=== PATIENT | male | born 1980 | race Two or more races ===

== ENCOUNTER 2024-09-12 11:03 | Inpatient (IN) | payer MEDICAID, OTHER ==
[~2024-09-12] VITALS: Ht 165.1 cm; Wt 73.0 kg
[2024-09-12 11:36] VITALS: PULSE 92; RESP 10; O2SAT 97
[2024-09-12] MEDS: SODIUM CHLORIDE 0.9% 1,000 ML IV ONE ×2 (11:38→17:15)
--- NOTE | 2024-09-12 11:42 | ED.PDOC ---
Altered Mental Status HPI Comments HPI: Poor Historian. 44 y.o male brought in by ambulance for evaluation of ALOC. Father reports patient has been vomiting for the past couple of days, persistent all last night and this morning noticed blood in vomit. Father reports patient locked himself in his room, had to break inside and found him altered and vomiting. Patient normally has a GCS of 15 but appears to be combative on scene with EMS and is not answering any questions. Father reported no trauma. Patient is non compliant with medications and drinks heavily daily. Vitals BP: 126/72 HR: 94 Temp: 99.6 F SPO2: 96% RA RR: 22 Past medical history: ETOH abuse, Schizophrenia and depression with medication noncompliance Past surgical history: None No allergies reported REVIEW OF SYSTEMS: CONSTITUTIONAL: Denies acute: fever, diaphoresis, chills, HEAD: Denies acute: headache, photophobia Eyes: Denies acute: Double vision, vision loss, eye pain, eye discharge. EARS: Denies acute: tinnitus, hearing loss, ear discharge, ear pain, THROAT: Denies acute: sore throat, swelling, difficulty swallowing , pain with swallowing, change in voice. NECK: Denies acute: neck pain, neck swelling, stiff neck. HEART: Denies acute : chest pain, palpitations, LUNGS: Denies acute: SOB, wheezing, cough, hemoptysis ABDOMEN: Denies acute: abdominal pain, diarrhea, melena , hematemesis, hematochezia SKIN: Denies acute: rash, redness, lesions, itchiness. EXTREMITIES: Denies acute: calf pain, numbness, tingling, weakness, denies pain in extremity. Denies acute: Low back pain. Neuro: Denies acute: focal neurological deficit, motor or sensory focal neurological deficit, tremors, dizziness, loss of bowel or bladder function, cauda equina like symptoms. : Denies acute: dysuria, hematuria, flank pain, increase in urinary frequency. PSYCH: Denies acute: hallucination, suicidal ideation, homicidal ideation. PHYSICAL EXAM: General: no acute distress, awake and alert. Head: normocephalic, atraumatic. Neck: supple, trachea is midline, no swelling. Throat: Normal phonation. Eyes:, no erythema, no purulent discharge, no proptosis, no icterus. Heart: regular rate, regular rhythm, no significant murmur appreciated. Lungs: no apparent respiratory distress, Able to speak in full sentences. No wheezing, no rhonchi, no crackles. No stridors Clear to auscultation bilaterally. Abdomen: non tender to palpation, non distended, soft, no guarding, no rebound, + bowel sounds. Neuro: Awake, Alert, oriented to name, appears confused and not his normal self per dad at bedside. Skin: no petechia, no purpura, no cyanosis, non-pale, not jaundice. Lower extremities: --no - Pitting edema no deformity, no focal swelling, no calf TTP. Makes eye contact. moves all four extremities. Face: no apparent facial droop. No nuchal rigidity, Kernig's sign, Brudzinski's sign, no meningeal signs. ED COURSE: Chief Complaint: Nausea/Vomiting Time Seen by MD: 10:40 Primary Care Provider: UNKNOWN Reviewed Notes: Nurses Notes, Allergies Allergies: Coded Allergies: NO KNOWN ALLERGIES (Unverified , 09/12/24) Information Source: Relative (Father), Emergency Med Personnel Mode of Arrival: EMS Past Medical History PAST MEDICAL HISTORY: Depression, Schizophrenia Surgical History: Denies all surgeries Family History Family History: Reviewed,noncontributory to illness Social History Smoker: Non-Smoker Alcohol: Heavy Drugs: Denies Drug Use Lives In: Home Was a procedure done? Was a procedure done?: No Differential Diagnosis (ALOC) Differential Diagnosis: Closed Head Injury, Drug Overdose, ETOH Intoxication, Other (DDX include CVA, TGA, cerebellar ischemia/infarct, carotid stenosis, Intracranial mass/infection/bleed, encephalopathy, electrolyte abnormality, thyroid disease, hydrocephalus, hypoglycemia, drug toxicity, cardiac arrhythmia, seizure, infection in the elderly, Hyperammonemia., kidney failure., sepsis.) X-Ray, Labs, Meds, VS Vital Signs Date Time Temp Pulse Resp B/P (MAP) Pulse Ox O2 Delivery O2 Flow Rate FiO2 09/12/24 13:56 101.0 86 11 93/44 (60) 98 101.0 09/12/24 12:30 81 09/12/24 11:36 92 10 97 Room Air* 0 21 09/12/24 11:36 100.7 92 10 110/76 (87) 97 100.7 09/12/24 11:31 92 09/12/24 11:09 99.6 94 22 126/72 (90) 96 Lab Test 09/12/24 15:46 09/12/24 13:27 09/12/24 12:10 09/12/24 11:36 Range/Units Troponin I High Sensitivity 5 5 6 </=54 ng/L Influenza Type A Antigen Negative Negative Influenza Type B Antigen Negative Negative SARS-CoV-2 Antigen (Rapid) Negative NEGATIVE White Blood Count 21.3 H 4.4-10.8 10^3/uL Red Blood Count 5.72 4.5-5.90 10^6/uL Hemoglobin 17.3 13.5-17.5 g/dL Hematocrit 51.6 41.0-53.0 % Mean Corpuscular Volume 90.2 80.0-100.0 fL Mean Corpuscular Hemoglobin 30.2 28.0-32.0 pg Mean Corpuscular Hemoglobin Concent 33.4 32.0-36.0 g/dL Red Cell Distribution Width 13.6 11.8-14.3 % Platelet Count 309 140-450 10^3/uL Mean Platelet Volume 8.7 6.9-10.8 fL Neutrophils (%) (Auto) 91.8 H 37.0-80.0 % Lymphocytes (%) (Auto) 4.2 L 10.0-50.0 % Monocytes (%) (Auto) 3.9 0.0-12.0 % Eosinophils (%) (Auto) 0.0 0.0-7.0 % Basophils (%) (Auto) 0.1 0.0-2.0 % Neutrophils # (Auto) 19.5 H 1.6-8.6 10 ^3/uL Lymphocytes # (Auto) 0.9 0.4-5.4 10 ^3/uL Monocytes # (Auto) 0.8 0-1.3 10 ^3/uL Eosinophils # (Auto) 0 0-0.8 10 ^3/uL Basophils # (Auto) 0 0-0.2 10 ^3/uL Nucleated Red Blood Cells 0.0 % Sodium Level 135 L 136-145 mmol/L Potassium Level 4.3 3.5-5.1 mmol/L Chloride Level 101 98-107 mmol/L Carbon Dioxide Level 23 20-31 mmol/L Anion Gap 11 5-15 Blood Urea Nitrogen 12 9-23 mg/dL Creatinine 1.27 0.700-1.30 mg/dL Glomerular Filtration Rate Calc 71 >90 mL/min BUN/Creatinine Ratio 9.4 L 10.0-20.0 Serum Glucose 135 H 74-106 mg/dL Lactic Acid Level 1.8 0.4-2.0 mmol/L Calcium Level 11.0 H 8.7-10.4 mg/dL Magnesium Level 2.6 1.6-2.6 mg/dL Total Bilirubin 0.7 0.2-1.0 mg/dL Aspartate Amino Transferase (AST) 31 13-40 U/L Alanine Aminotransferase (ALT) 38 7-40 U/L Alkaline Phosphatase 85 46-116 U/L Creatine Kinase 805 H 46-171 U/L B-Type Natriuretic Peptide 20.11 0-100 pg/mL Total Protein 8.4 H 5.7-8.2 g/dL Albumin 5.5 H 3.2-4.8 g/dL Salicylates Level < 3.0 -30 mg/dL Acetaminophen Level < 2.0 L 10.0-20.0 UG/ML Plasma/Serum Blood Alcohol < 3.0 <10 mg/dL Current Medications Medications (Trade) Dose Ordered Sig/Leonor Route Start Time Stop Time Status Last Admin Sodium Chloride 1,000 ml @ 1,000 mls/hr Q1H ONCE IV 09/12/24 11:30 09/12/24 12:29 DC 09/12/24 11:38 Lorazepam (Ativan Inj) 1 mg ONCE ONCE IV 09/12/24 11:30 09/12/24 11:31 DC 09/12/24 11:45 Ondansetron HCl (Zofran) 8 mg ONCE ONCE IV 09/12/24 11:30 09/12/24 11:31 DC 09/12/24 11:45 Sodium Chloride 1,000 ml @ 1,000 mls/hr Q1H ONCE IV 09/12/24 12:00 09/12/24 12:59 DC 09/12/24 17:15 Piperacillin Sod/ Tazobactam Sod 100 ml @ 100 mls/hr ONCE ONCE IV 09/12/24 12:00 09/12/24 12:59 DC 09/12/24 13:31 Ceftriaxone Sodium 50 ml @ 100 mls/hr ONCE ONCE IV 09/12/24 12:00 09/12/24 12:29 DC 09/12/24 12:26 Lorazepam (Ativan Inj) 1 mg ONCE ONCE IV 09/12/24 13:30 09/12/24 13:31 DC 09/12/24 13:43 Acetaminophen (Ofirmev) 1,000 mg ONCE ONCE IV 09/12/24 13:30 09/12/24 13:31 DC 09/12/24 13:46 Pantoprazole Sodium (Protonix) 40 mg ONCE ONCE IV 09/12/24 13:45 09/12/24 13:53 DC 09/12/24 14:44 [place] [id number] Ph: [phone] DIAGNOSTIC IMAGING Diagnostic Imaging Report : [id number] Signed PATIENT: NING SANCHEZ ACCT: [id number] UNIT: [id number] : 1980 LOC: OVERFLOW ROOM / BED: [address] [place] [address] AGE / SEX: 44 / M ADM STATUS: ADM IN SERVICE 1121 ORDERING PHYSICIAN: JEANCARLOS CALI DO PROCEDURE(s): ABPL - CT AB PEL WO CON-NO ORAL OR IV REASON: AMS N/V ORDER NUMBER(s): [id number], ACCESSION NUMBER(s): [id number] Procedure: CT CT AB PEL WO CON-NO ORAL OR IV 09/12/2024 02:19 PM Indication: AMS N/V Comparison Study: None Technique: Axial images were obtained and reformatted in coronal and sagittal planes. All CT scans at this medical facility are performed using dose modulation techniques as appropriate to a performed exam including the following: Automated exposure control was utilized; adjustment of the MA and/or KV according to patient size; and use of iterative reconstruction technique. CT Dose: CTDI volume is 69, 20 mGy. Dose-length product is 2656.9 mGy*cm FINDINGS: Lower Chest: Left basilar streaky opacities are seen. Hepatobiliary: Hepatomegaly and hepatic steatosis. Spleen: Unremarkable. Pancreas: Unremarkable. Adrenal Glands: Unremarkable. tract: The kidneys are normal in size bilaterally without hydronephrosis or nephrolithiasis. A 3.2 cm exophytic cyst arising from the lower pole of the left kidney. The urinary bladder is unremarkable. GI tract: The stomach is grossly normal in appearance. No evidence of small bowel obstruction. Scattered colonic diverticula are noted without evidence of diverticulitis. The appendix is not visualized. No inflammatory change is noted in the right lower quadrant. Lymphatics: No mesenteric, retroperitoneal or periportal lymphadenopathy. Vasculature: The abdominal aorta is normal in in caliber. Pelvic Organs: Unremarkable Bones/soft tissues: Complicated cyst noted in the right buttock near the intergluteal cleft likely a complicated sebaceous cyst Other: None. IMPRESSION: 1. No CT evidence of acute abnormality in the abdomen and pelvis. 2. Mild left basilar pulmonary opacities likely subsegmental atelectasis. Developing pneumonia can not be ruled out. Recommend clinical and biochemical correlation. 3. Hepatomegaly and hepatic steatosis.Scattered colonic 4. Diverticula without diverticulitis. ATED BY: ANABEL XIE MD DICTATED DATE/TIME: 09/12/241607 SIGNED BY: ANABEL XIE MD SIGNED DATE/TIME: 09/12/24 160 CC: [place] [id number] Ph: [phone] DIAGNOSTIC IMAGING Diagnostic Imaging Report : [id number] Signed PATIENT: NING SANCHEZ ACCT: [id number] UNIT: [id number] : 1980 LOC: ER ROOM / BED: / AGE / SEX: 44 / M ADM STATUS: REG ER SERVICE 1118 ORDERING PHYSICIAN: JEANCARLOS CALI DO PROCEDURE(s): HWOCT - HEAD WITHOUT CONTRAST REASON: [facility] N/V ORDER NUMBER(s): [id number], ACCESSION NUMBER(s): [id number] EXAM: CT HEAD WITHOUT CONTRAST INDICATION: [facility] N/V TECHNIQUE: CT of the head without intravenous contrast. Radiation Dose Information: CT Dose: CTDI volume is 69.72 mGy. Dose-length product is 2656.93 mGy*cm The dose indicators for CT are the volume Computed Tomography (CT) Dose Index (CTDIvol) and the Dose Length Product (DLP), and are measured in units of mGy and mGy-cm, respectively. These indicators are not patient dose, but values generated from the CT scanner acquisition factors. The report includes radiation exposure data for exposures received during this examination. COMPARISON: None FINDINGS: There is no evidence of acute intracranial hemorrhage, extra-axial collection, mass effect, midline shift, herniation or hydrocephalus. The ventricles, sulci and cisterns are age appropriate. The brown-white differentiation is intact. Patchy periventricular and subcortical white matter hypoattenuation is nonsp ecific but may be related to small vessel ischemic disease. The visualized paranasal sinuses and mastoid air cells are clear. The surrounding soft tissues and osseous structures are unremarkable. IMPRESSION: 1. No acute intracranial hemorrhage. 2. No CT findings of territorial ischemia. ATED BY: MARCUS KENT Jr., DO DICTATED DATE/TIME: 09/12/241437 SIGNED BY: MARCUS KENT Jr., SIGNED DATE/TIME: 09/12/241437 CC: [place] [id number] Ph: [phone] DIAGNOSTIC IMAGING Diagnostic Imaging Report : [id number] Signed PATIENT: NING SANCHEZ ACCT: [id number] UNIT: [id number] : 1980 LOC: OVERFLOW ROOM / BED: [address] [place] [address] AGE / SEX: 44 / M ADM STATUS: ADM IN SERVICE 1118 ORDERING PHYSICIAN: JEANCARLOS CALI DO PROCEDURE(s): CXRP - CHEST PORTABLE REASON: AMS N/V ORDER NUMBER(s): [id number], ACCESSION NUMBER(s): [id number] CHEST RADIOGRAPH Indication: AMS N/V Technique: Single frontal view of the chest was obtained Comparison: None FINDINGS: Lines and Tubes: None Lungs: Poor inspiratory effort with bilateral bibasilar areas of atelectasis. Pleura: No effusion. No pneumothorax. Cardiomediastinal contours: Unremarkable Bones: No acute osseous abnormality. IMPRESSION: 1. Bibasilar areas of atelectasis or infiltrate. Findings may be due to poor inspiratory effort or bronchitis /pneumonia ATED BY: MARCUS KENT Jr., DO DICTATED DATE/TIME: 09/12/241632 SIGNED BY: MARCUS KENT Jr., SIGNED DATE/TIME: 09/12/241632 CC: Time of 1ST Reevaluation: 11:37 Reevaluation 1ST: Unchanged Time of 2ND Reevaluation: 13:32 (I spoke with the mother at bedside at this time. She said that he has been having some nausea yesterday and this morning he had some vomiting brown emesis. He has not been acting himself. He does drink alcohol. CT scans are still pending.) Reevaluation 2ND: Unchanged Patient Education/Counseling: Other Family Education/Counseling: Diagnosis, Treatment Comments Patient presented with the above HPI.--altered mental status----workup was initiated. patient was found with the above mentioned diagnosis. the following medications were ordered: please refer to order lists of meds and tests obtained by myself Dr. Cali. Patient ED course and VS have been stabilized. Patient has been reassessed in the ED and remained in a stable condition. Pertinent incidental findings were discussed with the patient and/or family. Patient/family voices understanding and is agreeable with plan. Patient has been observed in the ED adequate length of time to insure improve ment/stability. Escalation of care considered: Consideration of escalation to observation or admission Patient was ADMITTED to the medicine team for further evaluation and treatment of their presentation. Patient was given initial empiric antibiotics. For suspected aspiration pneumonia, patient was given Zosyn given his septic presentation. There was no evidence of oral trauma or incontinence. However withdrawal seizure is a possibility. Patient was given Ativan to prevent possible seizures from w ithdrawal and to help him calm during CT scan. Sepsis protocol initiated. All the reports of any imaging studies that were ordered by myself were reviewed by myself. UDS is not available until tomorrow. Machine is broken. Departure 1 Departure Time of Disposition: 12:45 Impression: Primary Impression: Altered mental status Additional Impressions: Leukocytosis Nausea and vomiting Alcohol abuse Alcohol withdrawal seizure Fever Sepsis Disposition: 09 ADMITTED INPATIENT Admit to: Tele Condition: Guarded Discharged With: Self Critical Care Note Critical Care Time?: Yes (45 min-critical care time only) I personally scribed for JEANCARLOS CALI DO ([facility] on 09/12/24 at 11:42. Electronically submitted by Meena Lang ([facility]). I personally scribed for JEANCARLOS CALI DO ([facility]) on 09/12/24 at 18:18. Electronically submitted by Meena Lang ([facility]). JEANCARLOS CALI DO Sep 12, 2024 11:42
[2024-09-12] MEDS: ONDANSETRON HCL 4 MG/2 ML VIAL IV ONE (11:45)
[2024-09-12] MEDS: LORazepam 2MG/ML-1ML VIAL IV ONE ×2 (11:45→13:43)
[2024-09-12 12:12] LABS: Basophils # (auto) 0 10 ^3/uL (0-0.2); Basophils % (auto) 0.1 % (0.0-2.0); Eosinophils # (auto) 0 10 ^3/uL (0-0.8); Hematocrit 51.6 % (41.0-53.0); Hemoglobin 17.3 g/dL (13.5-17.5); Lymphocytes # (auto) 0.9 10 ^3/uL (0.4-5.4); Lymphocytes % (auto) 4.2 % (10.0-50.0); Mean Corpuscular Hemoglobin 30.2 pg (28.0-32.0); Mean Corpuscular Hgb Conc. 33.4 g/dL (32.0-36.0); Mean Corpuscular Volume 90.2 fL (80.0-100.0); Monocytes # (auto) 0.8 10 ^3/uL (0-1.3); Monocytes % (auto) 3.9 % (0.0-12.0); Neutrophils # (auto) 19.5 10 ^3/uL (1.6-8.6); Neutrophils % (auto) 91.8 % (37.0-80.0); Platelet Count (auto) 309 10^3/uL (140-450); Red Blood Cells 5.72 10^6/uL (4.5-5.90); Red Cell Distribution Width 13.6 % (11.8-14.3); White Blood Cell 21.3 10^3/uL (4.4-10.8)
[2024-09-12 12:26] LABS: Alanine Aminotransferase 38 U/L (7-40); Alkaline Phosphatase 85 U/L (46-116); Anion Gap 11 (5-15); Aspartate Aminotransferase 31 U/L (13-40); BUN/Creatinine Ratio 9.4 (10.0-20.0); Blood Urea Nitrogen 12 mg/dL (9-23); Carbon Dioxide 23 mmol/L (20-31); Chloride 101 mmol/L (98-107); Magnesium 2.6 mg/dL (1.6-2.6); Potassium 4.3 mmol/L (3.5-5.1)
[2024-09-12] MEDS: cefTRIAXone 1GM/50ML D5W 50 ML IV ONE ×2 (12:26→17:09)
[2024-09-12 12:27] LABS: Acetaminophen < 2.0 UG/ML (10.0-20.0); Bilirubin, Total 0.7 mg/dL (0.2-1.0); Salicylate < 3.0 mg/dL (-30)
[2024-09-12 12:35] LABS: Albumin 5.5 g/dL (3.2-4.8); Creatine Kinase IFCC 805 U/L (46-171); Glucose 135 mg/dL (74-106); Sodium 135 mmol/L (136-145); Total Protein 8.4 g/dL (5.7-8.2)
[2024-09-12 12:59] LABS: COVID19 ANTIGEN SOFIA FIA NEGATIVE (NEGATIVE); Rapid Influenza A Negative (Negative); Rapid Influenza B Negative (Negative)
[2024-09-12] MEDS: PIPERACILLIN-TAZOB 3.375GM 100 ML IV ONE (13:31)
[2024-09-12] MEDS: ACETAMINOPHEN IV 1000 MG/100ML (10MG/ML) IV ONE (13:46)
--- NOTE | 2024-09-12 14:41 | DVH ---
EXAM: CT HEAD WITHOUT CONTRAST INDICATION: AMS N/V TECHNIQUE: CT of the head without intravenous contrast. Radiation Dose Information: CT Dose: CTDI volume is 69.72 mGy. Dose-length product is 2656.93 mGy*cm The dose indicators for CT are the volume Computed Tomography (CT) Dose Index (CTDIvol) and the Dose Length Product (DLP), and are measured in units of mGy and mGy-cm, respectively. These indicators are not patient dose, but values generated from the CT scanner acquisition factors. The report includes radiation exposure data for exposures received during this examination. COMPARISON: None FINDINGS: There is no evidence of acute intracranial hemorrhage, extra-axial collection, mass effect, midline s hift, herniation or hydrocephalus. The ventricles, sulci and cisterns are age appropriate. The brown-white differentiation is intact. Patchy periventricular and subcortical white matter hypoattenuation is nonspecific but may be related to small vessel ischemic disease. The visualized paranasal sinuses and mastoid air cells are clear. The surrounding soft tissues and osseous structures are unremarkable. IMPRESSION: 1. No acute intracranial hemorrhage. 2. No CT findings of territorial ischemia.
[2024-09-12] MEDS: PANTOPRAZOLE 40 MG/10 ML VIAL INJ IV ONE (14:44)
[2024-09-12] MEDS ORDERED: LORazepam 2MG/ML-1ML VIAL IV PRN (16:00)
[2024-09-12] MEDS ORDERED: DOCUSATE SOD 100 MG CAP PO PRN (16:00)
[2024-09-12] MEDS ORDERED: MORPHINE SULFATE INJ 2 MG/ml SYRG IV PRN (16:00)
[2024-09-12] MEDS ORDERED: ACETAMINOPHEN 325 MG TAB PO PRN (16:00)
[2024-09-12] MEDS ORDERED: VANCOMYCIN PER PHARMACY 0 MG IV SCH (16:00)
[2024-09-12] MEDS ORDERED: NITROGLYCERIN 0.4 MG SL TAB SL PRN (16:00)
--- NOTE | 2024-09-12 16:10 | DVH ---
Procedure: CT CT AB PEL WO CON-NO ORAL OR IV 09/12/2024 02:19 PM Indication: AMS N/V Comparison Study: None Technique: Axial images were obtained and reformatted in coronal and sagittal planes. All CT scans at this medical facility are performed using dose modulation techniques as appropriate t o a performed exam including the following: Automated exposure control was utilized; adjustment of th e MA and/or KV according to patient size; and use of iterative reconstruction technique. CT Dose: CTDI volume is 69, 20 mGy. Dose-length product is 2656.9 mGy*cm FINDINGS: Lower Chest: Left basilar streaky opacities are seen. Hepatobiliary: Hepatomegaly and hepatic steatosis. Spleen: Unremarkable. Pancreas: Unremarkable. Adrenal Glands: Unremarkable. tract: The kidneys are normal in size bilaterally without hydronephrosis or nephrolithiasis. A 3.2 cm exophytic cyst arising from the lower pole of the left kidney. The urinary bladder is unremarkabl e. GI tract: The stomach is grossly normal in appearance. No evidence of small bowel obstruction. Scatte red colonic diverticula are noted without evidence of diverticulitis. The appendix is not visualized . No inflammatory change is noted in the right lower quadrant. Lymphatics: No mesenteric, retroperitoneal or periportal lymphadenopathy. Vasculature: The abdominal aorta is normal in in caliber. Pelvic Organs: Unremarkable Bones/soft tissues: Complicated cyst noted in the right buttock near the intergluteal cleft likely a complicated sebaceous cyst Other: None. IMPRESSION: 1. No CT evidence of acute abnormality in the abdomen and pelvis. 2. Mild left basilar pulmonary opacities likely subsegmental atelectasis. Developing pneumonia can n ot be ruled out. Recommend clinical and biochemical correlation. 3. Hepatomegaly and hepatic steatosis.Scattered colonic 4. Diverticula without diverticulitis.
--- NOTE | 2024-09-12 16:21 | DVHHP2 ---
History of Present Illness Reason for Visit: ALOC History of Present Illness Rafael Villar is a 44-year-old male with past medical history of bipolar, schizophrenia, and noncompliance, who was brought in by EMS for ALOC and vomiting. The patient lives with his mom and dad. Per the parents the patient does not take him prescription medications and self medicates with alcohol. They state he usually drinks 6-8 beers a day. That the last 3 weeks he hasn't been drinking until 2 days ago when he had 67 beers, and 3 beers yesterday. They also state that he was not feeling well yesterday. He went bed around 4:30 pm due to not feeling well, and didn't even come out to eat dinner. In the morning, when he didn't come out for breakfast they went to check on him and could hear him dry heaving. When they got into his room he was in bed with vomit around him and he was altered. When he wouldn't answer questions or follow commands they called EMS. On assessment patient is altered, not following, commands, not answering questions, with a sheet over his head. When I tried to ask him questions he looked around, did not answer me or look at me. Psych: Bipolar, Schizophrenia Past Surgical History: Appendectomy, Other (Jaw surgery) Smoke: No ALCOHOL: none Lives: with Family Domestic Violence: Neg Review of Systems Review of Systems unable to obtain. Family brought him in for ALOC, and vomiting Allergies: Coded Allergies: NO KNOWN ALLERGIES (Unverified , 09/12/24) Medications Current Medications Medications Dose Ordered Sig/Leonor Route Start Time Stop Time Status Last Admin Dose Admin Acetaminophen/ Hydrocodone Bitart 1 tab Q4HP PRN PO 09/12/24 16:00 UNV Ondansetron HCl 4 mg Q4HP PRN IV 09/12/24 16:00 UNV Docusate Sodium 100 mg BIDPRN PRN PO 09/12/24 16:00 UNV Enoxaparin Sodium 40 mg DAILY SC 09/13/24 10:00 UNV Acetaminophen 650 mg Q6HP PRN PO 09/12/24 16:00 UNV Nitroglycerin 0.4 mg Q5MINP PRN SL 09/12/24 16:00 UNV Morphine Sulfate 2 mg Q30M PRN IV 09/12/24 16:00 UNV Folic Acid 1 mg/ Multivitamins 10 ml/Magnesium Sulfate 8 meq/ Thiamine HCl 100 mg/Dextrose 1,013.2 ml @ 125.001 mls/hr DAILY@1800 INJ 09/12/24 18:00 UNV Lorazepam 1 mg Q2HP PRN IV 09/12/24 16:00 UNV Exam Vital Signs Vital Signs Date Time Temp Pulse Resp B/P (MAP) Pulse Ox O2 Delivery O2 Flow Rate FiO2 09/12/24 13:56 101.0 86 11 93/44 (60) 98 101.0 09/12/24 11:36 Room Air* 0 21 General Appearance: moderate distress, Other (Patient is altered, not following commands, not answering questions) HEENT: Atraumatic, PERRLA Respiratory: Clear to auscultation, Normal air movement Cardiovascular: Regular rate, Normal S1, Normal S2 Abdominal: Normal bowel sounds, Soft, No tenderness Extremities: No clubbing, No cyanosis, No edema, Normal pulses Skin: No rashes, No breakdown, No significant lesion Neuro: Other (Patient is altered, not following commands, not answering questions) Labs/Xrays Labs Test 09/12/24 13:27 09/12/24 12:10 09/12/24 11:36 Range/Units Troponin I High Sensitivity 5 </=54 ng/L Influenza Type A Antigen Negative Negative Influenza Type B Antigen Negative Negative SARS-CoV-2 Antigen (Rapid) Negative NEGATIVE White Blood Count 21.3 H 4.4-10.8 10^3/uL Red Blood Count 5.72 4.5-5.90 10^6/uL Hemoglobin 17.3 13.5-17.5 g/dL Hematocrit 51.6 41.0-53.0 % Mean Corpuscular Volume 90.2 80.0-100.0 fL Mean Corpuscular Hemoglobin 30.2 28.0-32.0 pg Mean Corpuscular Hemoglobin Concent 33.4 32.0-36.0 g/dL Red Cell Distribution Width 13.6 11.8-14.3 % Platelet Count 309 140-450 10^3/uL Mean Platelet Volume 8.7 6.9-10.8 fL Neutrophils (%) (Auto) 91.8 H 37.0-80.0 % Lymphocytes (%) (Auto) 4.2 L 10.0-50.0 % Monocytes (%) (Auto) 3.9 0.0-12.0 % Eosinophils (%) (Auto) 0.0 0.0-7.0 % Basophils (%) (Auto) 0.1 0.0-2.0 % Neutrophils # (Auto) 19.5 H 1.6-8.6 10 ^3/uL Lymphocytes # (Auto) 0.9 0.4-5.4 10 ^3/uL Monocytes # (Auto) 0.8 0-1.3 10 ^3/uL Eosinophils # (Auto) 0 0-0.8 10 ^3/uL Basophils # (Auto) 0 0-0.2 10 ^3/uL Nucleated Red Blood Cells 0.0 % Sodium Level 135 L 136-145 mmol/L Potassium Level 4.3 3.5-5.1 mmol/L Chloride Level 101 98-107 mmol/L Carbon Dioxide Level 23 20-31 mmol/L Anion Gap 11 5-15 Blood Urea Nitrogen 12 9-23 mg/dL Creatinine 1.27 0.700-1.30 mg/dL Glomerular Filtration Rate Calc 71 >90 mL/min BUN/Creatinine Ratio 9.4 L 10.0-20.0 Serum Glucose 135 H 74-106 mg/dL Lactic Acid Level 1.8 0.4-2.0 mmol/L Calcium Level 11.0 H 8.7-10.4 mg/dL Magnesium Level 2.6 1.6-2.6 mg/dL Total Bilirubin 0.7 0.2-1.0 mg/dL Aspartate Amino Transferase (AST) 31 13-40 U/L Alanine Aminotransferase (ALT) 38 7-40 U/L Alkaline Phosphatase 85 46-116 U/L Creatine Kinase 805 H 46-171 U/L B-Type Natriuretic Peptide 20.11 0-100 pg/mL Total Protein 8.4 H 5.7-8.2 g/dL Albumin 5.5 H 3.2-4.8 g/dL Salicylates Level < 3.0 -30 mg/dL Acetaminophen Level < 2.0 L 10.0-20.0 UG/ML EXAM: CT HEAD WITHOUT CONTRAST FINDINGS: There is no evidence of acute intracranial hemorrhage, extra-axial collection, mass effect, midline shift, herniation or hydrocephalus. The ventricles, sulci and cisterns are age appropriate. The brown-white differentiation is intact. Patchy periventricular and subcortical white matter hypoattenuation is nonspecific but may be related to small vessel ischemic disease. The visualized paranasal sinuses and mastoid air cells are clear. The surrounding soft tissues and osseous structures are unremarkable. IMPRESSION: 1. No acute intracranial hemorrhage. 2. No CT findings of territorial ischemia. CHEST RADIOGRAPH FINDINGS: Lines and Tubes: None Lungs: Poor inspiratory effort with bilateral bibasilar areas of atelectasis. Pleura: No effusion. No pneumothorax. Cardiomediastinal contours: Unremarkable Bones: No acute osseous abnormality. IMPRESSION: 1. Bibasilar areas of atelectasis or infiltrate. Findings may be due to poor inspiratory effort or bronchitis /pneumonia Procedure: CT CT AB PEL WO CON-NO ORAL OR IV 09/12/2024 02:19 PM FINDINGS: Lower Chest: Left basilar streaky opacities are seen. Hepatobiliary: Hepatomegaly and hepatic steatosis. Spleen: Unremarkable. Pancreas: Unremarkable. Adrenal Glands: Unremarkable. tract: The kidneys are normal in size bilaterally without hydronephrosis or nephrolithiasis. A 3.2 cm exophytic cyst arising from the lower pole of the left kidney. The urinary bladder is unremarkable. GI tract: The stomach is grossly normal in appearance. No evidence of small bowel obstruction. Scattered colonic diverticula are noted without evidence of diverticulitis. The appendix is not visualized. No inflammatory change is noted in the right lower quadrant. Lymphatics: No mesenteric, retroperitoneal or periportal lymphadenopathy. Vasculature: The abdominal aorta is normal in in caliber. Pelvic Organs: Unremarkable Bones/soft tissues: Complicated cyst noted in the right buttock near the intergluteal cleft likely a complicated sebaceous cyst Other: None. IMPRESSION: 1. No CT evidence of acute abnormality in the abdomen and pelvis. 2. Mild left basilar pulmonary opacities likely subsegmental atelectasis. Developing pneumonia can not be ruled out. Recommend clinical and biochemical correlation. 3. Hepatomegaly and hepatic steatosis. Scattered colonic 4. Diverticula without diverticulitis. Assessment/Plan Assessment/Plan Assessment: Altered level of consciousness, Metabolic encephalopathy, Possible ETOH withdrawals, Possible sepsis, Leukocytosis, Possible pneumonia, Plan: Admit to Tele, Consider Neurology consult if no improvement, Seizure precautions, IV hydration, IV antibiotics, PRN Ativan for ETOH withdrawal, NPO until more alert, UDS, and serum alcohol levels still pending, Plan discussed with: Patient, Other (Mom & Dad) My Orders Orders - TIFFANY RACHEL Procedure Category Date Status Time Admit ADMIT 09/12/24 Transmitted 15:49 Code Status CODE 09/12/24 Transmitted 15:49 Hydrocodone-Acet PHA 09/12/24 Logged 5/325mg Tab ([place] 16:00 Ondansetron Hcl PHA 09/12/24 Logged (Zofran) 16:00 Docusate Sodium PHA 09/12/24 Logged Capsule (Colace 16:00 Enoxaparin Sodium PHA 09/13/24 Logged (Lovenox) 10:00 Fall Risk Precautions YONIS 09/12/[address] 15:49 Complete Blood Count LAB 09/13/24 Verified 04:00 Comprehensive LAB 09/13/24 Verified Metabolic Panel 04:00 Npo (Nothing By DIET 09/12/24 Transmitted Mouth) Diet Dinner Condition: Serious YONIS 09/12/24 In Process 15:49 Acetaminophen Tablet PHA 09/12/24 Logged (Tylenol Tablet) 16:00 Nitroglycerin PHA 09/12/24 Logged Sublingual (Ntrostat 16:00 Morphine Sulfate PHA 09/12/24 Logged Injection 16:00 Stat Ekg For Chest YONIS 09/12/24 In Process Pain 15:49 Notify Md Of Changes YONIS 09/12/24 In Process From Base 15:49 Channeler For YONIS 09/12/24 In Process 24 Hours 15:49 Emergency Dysrhythmia YONIS 09/12/24 In Process Protocol 15:49 Rhythm Strips Once YONIS 09/12/24 In Process Every Shift 15:49 Oxygen By Nasal RT 09/12/24 Transmitted Cannula 15:49 Seizure Precautions YONIS 09/12/[address] 15:49 Folic Acid... PHA 09/12/24 Logged 18:00 Lorazepam 2mg/Ml Inj PHA 09/12/24 Logged (Ativan Inj) 16:00 Urine Bacterial ALDO 09/12/24 Transmitted Culture 15:56 Date of Service: Sep 12, 2024 Billing Provider: TIFFANY RACHEL Common Visit Codes: [id number] INP/OBS CARE (HIGH) TIFFANY RACHEL Sep 12, 2024 16:21
--- NOTE | 2024-09-12 16:35 | DVH ---
CHEST RADIOGRAPH Indication: AMS N/V Technique: Single frontal view of the chest was obtained Comparison: None FINDINGS: Lines and Tubes: None Lungs: Poor inspiratory effort with bilateral bibasilar areas of atelectasis. Pleura: No effusion. No pneumothorax. Cardiomediastinal contours: Unremarkable Bones: No acute osseous abnormality. IMPRESSION: 1. Bibasilar areas of atelectasis or infiltrate. Findings may be due to poor inspiratory effort or br onchitis /pneumonia
[2024-09-12 17:44] LABS: Blood Alcohol < 3.0 mg/dL (<10)
--- NOTE | 2024-09-12 18:32 | ECG ---
[facility] Test Date: 2024-09-12 Test Time: 11:31:35 Pat Name: NING SANCHEZ Department: ER Room: [address] [place] [address] Gender: M Crusher Tender: JENNA : 1980 Requested By: JEANCARLOS CALI Order Number: [id number] Reading MD: Measurements Intervals Dana Rate: 92 P: 55 TX: 141 QRS: 137 QRSD: 99 T: 22 QT: 364 QTc: 451 Interpretive Statements Sinus rhythm Right axis deviation Please click the below link to view image of tracing.
[2024-09-12] MEDS: FOLIC ACID 1 MG, MULTIPLE VITAMIN 10 ML, MAGNESIUM SULF SDV 50% 8 MEQ, THIAMINE INJ 100... INJ SCH (18:55)
[2024-09-12] MEDS: VANCOMYCIN 1GM/250ML KIT 250 ML IV ONE (18:56)
[2024-09-12 23:17] LABS: Urine Bacteria None Seen /hpf (None Seen)
[2024-09-12 23:48] LABS: Urine Amorphous Crystal MOD /hpf (None Seen); Urine Blood 1+ /uL (Negative); Urine Clarity Ex.Turbid (Clear); Urine Color Light-Brown (Yellow); Urine Mucus FEW (None Seen); Urine Protein, UAD 1+ (Negative); Urine Specific Gravity 1.016 (1.001-1.035); Urine Squamous Epithelial Cell None Seen /hpf (<5); Urine Urobilinogen Normal (Negative); Urine WBC 3 /HPF (0-3); Urine WBC Clumps PRESENT /hpf (None Seen); Urine pH 5.5 (5.0-9.0)
[2024-09-13] MEDS: ONDANSETRON HCL 4 MG/2 ML VIAL IV PRN (01:29)
[2024-09-13 07:29] LABS: Basophils # (auto) 0 10 ^3/uL (0-0.2); Basophils % (auto) 0.2 % (0.0-2.0); Eosinophils # (auto) 0 10 ^3/uL (0-0.8); Hematocrit 49.3 % (41.0-53.0); Hemoglobin 16.3 g/dL (13.5-17.5); Mean Corpuscular Hemoglobin 29.9 pg (28.0-32.0); Mean Corpuscular Hgb Conc. 33.1 g/dL (32.0-36.0); Mean Corpuscular Volume 90.5 fL (80.0-100.0); Monocytes # (auto) 1.3 10 ^3/uL (0-1.3); Monocytes % (auto) 7.5 % (0.0-12.0); Neutrophils # (auto) 13.7 10 ^3/uL (1.6-8.6); Neutrophils % (auto) 80.3 % (37.0-80.0); Nucleated Red Blood Cells % 0.1 %; Platelet Count (auto) 265 10^3/uL (140-450); Red Blood Cells 5.45 10^6/uL (4.5-5.90); Red Cell Distribution Width 13.9 % (11.8-14.3)
[2024-09-13 07:30] VITALS: BP 110/53; PULSE 64; RESP 13; TEMP 97.8; O2SAT 96
[2024-09-13 07:57] LABS: Alanine Aminotransferase 33 U/L (7-40); Alkaline Phosphatase 65 U/L (46-116); Anion Gap 10 (5-15); BUN/Creatinine Ratio 9.7 (10.0-20.0); Blood Urea Nitrogen 17 mg/dL (9-23); Carbon Dioxide 22 mmol/L (20-31); Chloride 104 mmol/L (98-107); Potassium 3.8 mmol/L (3.5-5.1)
[2024-09-13 07:58] LABS: Albumin 4.7 g/dL (3.2-4.8); Total Protein 7.5 g/dL (5.7-8.2)
[2024-09-13 08:00] LABS: Aspartate Aminotransferase 82 U/L (13-40); Glucose 133 mg/dL (74-106); Sodium 136 mmol/L (136-145)
[2024-09-13 08:01] VITALS: PULSE 65
[2024-09-13] MEDS: HYDROcodone-ACET 5/325MG TAB PO PRN (09:54)
[2024-09-13] MEDS: cefTRIAXone 1GM/50ML D5W 50 ML IV SCH (09:55)
[2024-09-13] MEDS: ENOXAPARIN SOD 40 MG/0.4 ML SYRINGE SC SCH (10:01)
[2024-09-13] MEDS ORDERED: VANCOMYCIN 1GM/250ML KIT 250 ML IV ONE (11:00)
[2024-09-13] MEDS ORDERED: SODIUM CHLORIDE 0.9% 1,000 ML IV ONE (14:15)
[2024-09-13] MEDS ORDERED: AUG875T PO (14:23)
--- NOTE | 2024-09-13 14:41 | DVHDS2 ---
Discharge Summary Date of Admission Sep 12, 2024 at 15:49 Date of Discharge: Sep 13, 2024 Labs/Diagnostic Data: Laboratory Results Test 09/13/24 06:39 09/12/24 22:15 09/12/24 15:46 09/12/24 12:10 White Blood Count 17.0 10^3/uL (4.4-10.8) Red Blood Count 5.45 10^6/uL (4.5-5.90) Hemoglobin 16.3 g/dL (13.5-17.5) Hematocrit 49.3 % (41.0-53.0) Mean Corpuscular Volume 90.5 fL (80.0-100.0) Mean Corpuscular Hemoglobin 29.9 pg (28.0-32.0) Mean Corpuscular Hemoglobin Concent 33.1 g/dL (32.0-36.0) Red Cell Distribution Width 13.9 % (11.8-14.3) Platelet Count 265 10^3/uL (140-450) Mean Platelet Volume 9.0 fL (6.9-10.8) Neutrophils (%) (Auto) 80.3 % (37.0-80.0) Lymphocytes (%) (Auto) 12.0 % (10.0-50.0) Monocytes (%) (Auto) 7.5 % (0.0-12.0) Eosinophils (%) (Auto) 0.0 % (0.0-7.0) Basophils (%) (Auto) 0.2 % (0.0-2.0) Neutrophils # (Auto) 13.7 10 ^3/uL (1.6-8.6) Lymphocytes # (Auto) 2.0 10 ^3/uL (0.4-5.4) Monocytes # (Auto) 1.3 10 ^3/uL (0-1.3) Eosinophils # (Auto) 0 10 ^3/uL (0-0.8) Basophils # (Auto) 0 10 ^3/uL (0-0.2) Nucleated Red Blood Cells 0.1 % Sodium Level 136 mmol/L (136-145) Potassium Level 3.8 mmol/L (3.5-5.1) Chloride Level 104 mmol/L (98-107) Carbon Dioxide Level 22 mmol/L (20-31) Anion Gap 10 (5-15) Blood Urea Nitrogen 17 mg/dL (9-23) Creatinine 1.76 mg/dL (0.700-1.30) Glomerular Filtration Rate Calc 48 mL/min (>90) BUN/Creatinine Ratio 9.7 (10.0-20.0) Serum Glucose 133 mg/dL (74-106) Calcium Level 10.0 mg/dL (8.7-10.4) Total Bilirubin 1.0 mg/dL (0.2-1.0) Aspartate Amino Transferase (AST) 82 U/L (13-40) Alanine Aminotransferase (ALT) 33 U/L (7-40) Alkaline Phosphatase 65 U/L (46-116) Total Protein 7.5 g/dL (5.7-8.2) Albumin 4.7 g/dL (3.2-4.8) Random Vancomycin Level 7.1 ug/mL (5-10) Urine Color Light-brown (Yellow) Urine Clarity Ex.turbid (Clear) Urine pH 5.5 (5.0-9.0) Urine Specific [place] 1.016 (1.001-1.035) Urine Protein 1+ (Negative) Urine Ketones Trace (Negative) Urine Blood 1+ /uL (Negative) Urine Nitrite Negative (Negative) Urine Bilirubin Negative (Negative) Urine Urobilinogen Normal mg/dL (Negative) Urine Leukocyte Esterase Negative /uL (Negative) Urine RBC 4 /hpf (0 - 3) Urine WBC Clumps Present /hpf (None Seen) Urine Microscopic WBC 3 /HPF (0-3) Urine Squamous Epithelial Cells None seen /hpf (<5) Urine Uric Acid Crystals Mod /hpf (None Seen) Urine Amorphous Crystals Mod /hpf (None Seen) Urine Bacteria None seen /hpf (None Seen) Urine Mucus Few (None Seen) Urine Glucose Normal mg/dL (Normal) Troponin I High Sensitivity 5 ng/L (</=54) Influenza Type A Antigen Negative (Negative) Influenza Type B Antigen Negative (Negative) SARS-CoV-2 Antigen (Rapid) Negative (NEGATIVE) Test 09/12/24 11:36 Lactic Acid Level 1.8 mmol/L (0.4-2.0) Magnesium Level 2.6 mg/dL (1.6-2.6) Creatine Kinase 805 U/L (46-171) B-Type Natriuretic Peptide 20.11 pg/mL (0-100) Salicylates Level < 3.0 mg/dL (-30) Acetaminophen Level < 2.0 UG/ML (10.0-20.0) Plasma/Serum Blood Alcohol < 3.0 mg/dL (<10) Other Laboratory Tests 09/13/24 06:39 Brief Hx & Hospital Course: Final diagnoses: Bilateral pneumonia Acute metabolic encephalopathy due to pneumonia Acute kidney injury hemodynamically mediated Dehydration Nausea and vomiting Schizophrenia Bipolar disorder Sepsis due to the above 44 year old male with history of schizophrenia and bipolar disorder became altered per his mother yesterday and was having nausea and vomiting She said he does not take his medications for his schizophrenia and bipolar which is Seroquel he takes it looks like as needed He was admitted here and was given and vitamins Now he is feeling better His labs showed acute kidney injury with elevated creatinine The patient is asymptomatic now and he would like to go home however because his creatinine went higher today, we will give him a L bolus of normal saline IV before he leaves and then he can be discharged home on Augmentin for 7 days for the underlying pneumonia He was advised to follow up with his primary care physician as soon as possible and with his psychiatrist The mother is at the bedside and she is agreeable for the discharge Patient is stable for discharge Condition at Discharge: Stable Final Diagnosis/Problems List Bilateral pneumonia Acute metabolic encephalopathy due to pneumonia Acute kidney injury hemodynamically mediated Dehydration Nausea and vomiting Schizophrenia Bipolar disorder Sepsis due to the above Discharge Disposition: Home SNF Discharge Will this Physician continue t: No Discharge Instruct/Medications Diet: Regular Activity: No Restrictions, As Tolerated Follow Up/Referral: PCP as soon as possible Medications: Resume home medications Augmentin 875 mg twice a day for 7 days Discharge Statement: "Patient was advised to return to the ER or call 911 if any headaches, dizziness, shortness of breath, chest pain, abdominal pain, bleeding, fevers, or worsening of medical condition. Patient was counseled about treatment plan, medications, possible side effects, patientverbalized understanding. All questions were answered to the best of my ability. This discharge took greater then 30 minutes in planning, reviewing documentation, counseling the patient, and discussing with other team members." ASSESSMENT ASSESSMENT Assessment Bilateral pneumonia Acute metabolic encephalopathy due to pneumonia Acute kidney injury hemodynamically mediated Dehydration Nausea and vomiting Schizophrenia Bipolar disorder Sepsis due to the above Date of Service: Sep 13, 2024 Billing Provider: LUIS EDUARDO PARNELL MD Common Visit Codes: [id number] DISCH DAY >30min LUIS EDUARDO PARNELL MD Sep 13, 2024 14:41
[2024-09-13 16:07] LABS: Amphetamine Screen, Urine Neg (NEGATIVE)
[2024-09-13 16:08] LABS: Cannabinoid Screen, Urine Pos (NEGATIVE)
[2024-09-13 16:14] LABS: Barbiturate Scree,Urine Neg (NEGATIVE); Benzodiazephine Screen, Urine Neg (NEGATIVE); Cocaine Screen, Urine Neg (NEGATIVE); Opiate Scree,Urine Neg (NEGATIVE); Phencyclidine Screen, Urine Neg (NEGATIVE)
== END 2024-09-13 17:56 | disposition home or self-care (01) | DRG 720 ==
LOC: EDBD 11:03 → ER 11:03 → OVERFLOW 15:49
PROVIDERS: ADMIT Internal Medicine Geriatric Medicine; ATTEND Internal Medicine Geriatric Medicine
DX: A41.9 Sepsis, unspecified organism (principal); N17.0 Acute kidney failure with tubular necrosis; G93.41 Metabolic encephalopathy; J15.69 Pneumonia due to other Gram-negative bacteria; J15.9 Unspecified bacterial pneumonia; K76.0 Fatty (change of) liver, not elsewhere classified; E86.0 Dehydration; R56.9 Unspecified convulsions; Z20.822 Contact with and (suspected) exposure to COVID-19; F10.139 Alcohol abuse with withdrawal, unspecified; F20.9 Schizophrenia, unspecified; F31.9 Bipolar disorder, unspecified; J98.11 Atelectasis; Z91.148 Patient's other noncompliance with medication regimen for other reason
CPT/HCPCS: 36415; 70450; 71045; 74176; 80053; 80202; 80307; 80320; 80329; 81001; 82550; 83605; 83735; 83880; 84484; 85025; 87040; 87086; 87426; 87804; 93005; 96361; 96365; 96367; 96375; 96376; G0378